=== PATIENT | male | born 1990 | race Caucasian/White ===

== ENCOUNTER → 2019-12-12 13:03 | Day surgery (SDC) | payer BC ==
[~2019-12-12 13:03] MED LIST: Acetaminophen IV 1GM/100ML * 100 ML ONE; Acetaminophen TAB* 325 MG PO PRN; Buffered Lidocaine 1% SYRIN* 1 ML/SYRINGE INTRADERM ONE; Bupivacaine 0.25% SDV* 30 ML ONE; Dexamethasone IV* 4 MG/ML 1 ML (4 MG) ONE; HYDROmorphone INJ1* 1 MG/ML SYRINGE IV ONE; HYDROmorphone INJ1* 1 MG/ML SYRINGE ONE; Ibuprofen TAB* 400 MG PO PRN; KETAMINE HCL* 50 MG/ML 10 ML VIAL ONE; Ketorolac INJ* 30 MG/ML 1 ML VIAL ONE; Lactated Ringers 1000 ML Bag* 1,000 ML IV SCH; Lidocaine 2% PF * 5 ML VIAL ONE; Midazolam* 1 MG/ML 2 ML VIAL (2 MG) ONE; Midazolam* 1 MG/ML 5 ML VIAL (5 MG) ONE; Naloxone* 0.4 MG/ML 1 ML VIAL IV PRN; Ondansetron INJ* 2 MG/ML VIAL ONE; Propofol* 10 MG/ML 20 ML BTL ONE; Vancomycin(*) 1,000 MG VIAL ONE; ceFAZolin 2 GM PREMIX in ORs 2 GM/50 ML BAG ONE; fentaNYL* 50 MCG/ML 2 ML VIAL (100 MCG VIAL) ONE
[2019-12-12] MEDS: HYDROmorphone INJ1* 1 MG/ML SYRINGE IV PRN ×2 (15:47→16:00)
[2019-12-12 17:04] VITALS: BP 147/91
--- NOTE | 2019-12-13 07:23 | OP ---
DATE OF OPERATION: 12/11/19 - [facility] DATE OF : 89 ATTENDING SURGEON: Frank Lynch MD ASSISTED BY: Peter Hendricks PA-C. PRE-OP DIAGNOSIS: Recurrent neuroma, right superficial peroneal nerve. POST-OP DIAGNOSIS: Recurrent neuroma, right superficial peroneal nerve. OPERATIVE PROCEDURE: Exploration right superficial peroneal nerve with deep burial into the anterior compartment. DESCRIPTION OF PROCEDURE: The patient was taken to the operating room where a 6 cm longitudinal incision was made in the midcalf under a thigh tourniquet control. We exposed the superficial peroneal nerve, where it ran proximal to dorsal through the anterior portion of the flap. We transected it distally where it began to branch out into some significant scar tissue. We gained about 5 cm length of the nerve, tying this off at its tip with interrupted 3-0 Ethibond suture ligature. Tunneling deep to the anterior compartment exiting just along the lateral crest of the tibia with a Magda, we drove both ends of the suture on a Darrin needle deep into the anterior muscle belly and exiting the skin just lateral to the tibial crest. We tied over the skin burying the nerve deep into the anterior compartment. The patient had a very muscular compartment, so the nerve was buried deep probably 2 to 3 cm of muscle. We irrigated thoroughly closing the subcu with interrupted Monocryl, dee for the skin, and a compression dressing plaster splint applied. [id number] #: [id number] MTDD
== END | disposition home or self-care (01) ==
LOC: OR 13:03
PROVIDERS: ATTEND Orthopaedic Surgery
DX: G57.91 Unspecified mononeuropathy of right lower limb (principal); F41.9 Anxiety disorder, unspecified; Z88.2 Allergy status to sulfonamides; Z88.8 Allergy status to other drugs, medicaments and biological substances
CPT/HCPCS: J0690; J1100; J1170; J1885; J2250; J2405; J2704; J3010; J3370; J3490